=== PATIENT | male | born 1955 | race Caucasian/White ===

== ENCOUNTER → 2016-08-06 | Outpatient (CLI) | payer MEDICARE, MEDICAID ==
--- NOTE | 2016-08-06 12:51 | CR ---
EXAMINATION: Pelvis and right hip HISTORY: Pain COMPARISON: 12/26/2013 TECHNIQUE: AP pelvis and 2 views of the right hip FINDINGS: There is no fracture or acute osseous abnormality. There is mild joint space narrowing wit hin the left hip. There is a prominent superior acetabular rim bilaterally. The SI joints are symmet talib. Bone mineralization is normal. Early osteophyte formation is noted within the right hip and mod erately within the left hip. IMPRESSION: 1. Prominent superior acetabular rim bilaterally, left greater than right. This may suggest pincer-t ype femoral acetabular impingement.
== END ==
LOC: MW.CHORTHO 07:45
PROVIDERS: ATTEND Physician Assistant
DX: M25.551 Pain in right hip (principal); M16.11 Unilateral primary osteoarthritis, right hip
CPT/HCPCS: 73502-26-RT; 73502-RT; 99203

== ENCOUNTER → 2016-08-15 | Outpatient (CLI) | payer MEDICARE, MEDICAID ==
[~2016-08-15] MED LIST: Bupivacaine 0.25% 10 ML SDV INJECT ONE; Iopamidol 612 MG/ML 30 ML SDV IUTERINE STA; Triamcinolone Acetonide 40 MG/ML 1 ML MDV INJECT ONE; Triamcinolone Acetonide 40 MG/ML 1 ML MDV INJECT STA
--- NOTE | 2016-08-15 11:32 | CR ---
EXAMINATION: Fluoro guided right hip injection. HISTORY: Right hip pain FINDINGS: After written informed consent was obtained, under Fluoro guidance, using 1% lidocaine under aseptic conditions a 22-gauge spinal needle was introduced into the right hip joint. After confirmation wit h contrast a total of 80 mg of Kenalog and 3 cc of Marcaine was injected into the joint. The patient noted improvement in pain. IMPRESSION: Successful Fluoro guided right hip joint steroid injection.
== END | disposition home or self-care (01) ==
LOC: MW.DI 08:31
PROVIDERS: ATTEND Physician Assistant
DX: M25.551 Pain in right hip (principal)
CPT/HCPCS: 20610; 77002; J3301; Q9967

== ENCOUNTER 2020-03-30 19:44 | Emergency (ER) | payer MEDICARE, MEDICAID ==
[2020-03-30] MEDS ORDERED: Amoxicillin/Clavulanate K 875-125 MG Tab PO ONE (20:12)
--- NOTE | 2020-03-30 20:24 | EDM.PDOC ---
ED HPI GENERAL MEDICAL PROBLEM - General Chief Complaint: ENT Problem Stated Complaint: RT EAR BLEEDING Time Seen by Provider: 03/30/20 20:01 - History of Present Illness INITIAL COMMENTS - FREE TEXT/NARRATIVE: HISTORY AND PHYSICAL: History of present illness: This is a 64-year-old gentleman with a history significant for chronic otitis media with effusion, conjunctivitis, mild hypercholesterolemia, varicose veins, hearing impairment, gingivitis, chronic sinusitis, advanced left hip osteoarthritis, possible seizure disorder, mild intellectual stability, generalized anxiety disorder, major depressive disorder, cleft palate repair, left myringotomy with PE tubes on the right. Mastoidectomy, sigmoidoscopy, mastoid revision, septoplasty. Presents to the ER today secondary to drainage of his right ear. Caregiver reports no recent fevers, shakes, chills, nausea, vomiting, diarrhea. Reports that he has chronic infections in the utilize Borax acid powder to both ears daily. Review of systems: As per history of present illness and below otherwise all systems reviewed and negative. Past medical history: As per history of present illness and as reviewed below otherwise noncontributory. Surgical history: As per history of present illness and as reviewed below otherwise noncontributory. Social history: No reported history of drug or alcohol abuse. Family history: As per history of present illness and as reviewed below otherwise noncontributory. Physical exam: Constitutional: Patient is oriented to person, place, and time. Appears well- developed and well-nourished. No distress. HEENT: Moist mucous membranes Head: Normocephalic and atraumatic Left tympanic membrane without erythema or exudates. Right tympanic membrane reveals yellow fluid behind the tympanic membrane with a small amount of dr ainage. Eyes: Right eye exhibits no discharge. Left eye exhibits no discharge. No scleral icterus left panic membrane without any drainage or erythema. Neck: Normal range of motion. No tracheal deviation present. Cardiovascular: Normal rate and regular rhythm. Pulmonary: Effort normal, no respiratory distress. Abdominal: No distention Musculoskeletal: Normal range of motion Neurologic: Alert and oriented to person, place and time. Skin: [place], warm and dry. Psychiatric: Normal mood and affect. Behavior is normal. Judgment and thought content normal. Nursing note and vital signs have been reviewed This patient was seen and evaluated during the 2019 SARS-CoV-2 novel coronavirus pandemic period. Community viral transmission is ongoing at time of this encounter and the emergency department is operating under pandemic response procedures. Assessment and plan: 64-year-old gentleman who presents ER today secondary to drainage from his right ear. On evaluation, patient's right ear does have an effusion that is yellow with a small amount of drainage from it. Patient will be started on Augmentin 875 twice daily for 10 days and is instructed to continue his other medications for his ear. Patient is to follow-up with his doctor for reevaluation. Reassessment at the time of disposition demonstrates that the patient is in no acute distress. The patient has remained stable throughout the entire ED visit and is without objective evidence for acute process requiring urgent intervention or hospitalization. The patient is stable for discharge, counseling is provided as documented above, discussed symptomatic treatment and specific conditions for return. I have spoken with the patient/caregiver and discussed todays findings, in addition to providing specific details for the plan of care. Questions are answered and there is agreement with the plan. Definitive disposition and diagnosis as appropriate pending reevaluation and review of above. - Related Data Allergies Allergy/AdvReac Type Severity Reaction Status Date / Time No Known Allergies Allergy Verified 03/30/20 19:57 Home Meds: Home Meds Amoxicillin/Potassium Clav [Augmentin 875-125 Tablet] 1 each PO BID #20 tablet 03/30/20 [Rx] Aspirin 81 mg PO DAILY 03/30/20 [History] FLUoxetine HCl [Fluoxetine HCl] 40 mg PO DAILY 03/30/20 [History] Fenofibrate Nanocrystallized [Tricor] 145 mg PO DAILY 03/30/20 [History] Losartan Potassium 50 mg PO DAILY 03/30/20 [History] Meloxicam 15 mg PO DAILY 03/30/20 [History] Omeprazole 20 mg PO DAILY 03/30/20 [History] Past Medical History HEENT History: Reports: Hard of Hearing, Other (See Below) Other HEENT History: chronic otitis media w/ effusion, conjunctivitis, chronic sinusitis Cardiovascular History: Reports: High Cholesterol, Other (See Below) Other Cardiovascular History: vericose veins Musculoskeletal History: Reports: Other (See Below) Other Musculoskeletal History: advanced left hip osteoarthritis Neurological History: Reports: Other (See Below) Other Neuro History: possible seizure disorder Psychiatric History: Reports: Anxiety, Depression, Learning Disability, Other (See Below) Other Psychiatric History: paraphilia NOS, major deprssive disorder w/psychotic features - Past Surgical History HEENT Surgical History: Reports: Myringotomy w Tube(s), Oral Surgery, Other (See Below) Other HEENT Surgeries/Procedures: cleft palate repair, mastoidectomy & revision, septoplasty GI Surgical History: Reports: Other (See Below) Other GI Surgeries/Procedures: sigmoidoscopy Social & Family History - Family History Family Medical History: No Pertinent Family History - Tobacco Use Tobacco Use Status *Q: Never Tobacco User Second Hand Smoke Exposure: No - Recreational Drug Use Recreational Drug Use: No ED ROS GENERAL - Review of Systems Review Of Systems: See Below ED EXAM, GENERAL - Physical Exam Exam: See Below Course - Vital Signs Last Recorded V/S: Last Vital Signs Temp 97.1 F 03/30/20 19:52 Pulse 73 03/30/20 19:52 Resp 18 03/30/20 19:52 BP 142/77 H 03/30/20 19:52 Pulse Ox 94 L 03/30/20 19:52 - Orders/Labs/Meds Meds: Medications Discontinued Medications Generic Name Dose Route Start Last Admin Trade Name Freq PRN Reason Stop Dose Admin Amoxicillin/Clavulanate Potassium 1 tab 03/30/20 20:12 03/30/20 20:17 Augmentin 875 Mg/125 Mg PO 03/30/20 20:13 1 tab ONETIME ONE Administration Departure - Departure Time of Disposition: 20:23 Disposition: Home, Self-Care 01 Condition: Good Clinical Impression: Otitis media - Discharge Information Instructions: Otitis Media, Adult, [id number] Referrals: Aaron Bernal MD [Primary Care Provider] - Additional Instructions: Your seen and evaluated in the ER today secondary to drainage from your right ear. It appears that you have an infection in your right ear. You will be started on Augmentin 875 mg twice a day for 10 days. Please make an appointment to follow-up with your ear nose throat doctor this week for reevaluation. The following information is given to patients seen in the emergency department who are being discharged to home. This information is to outline your options for follow-up care. We provide all patients seen in our emergency department with a follow-up referral. The need for follow-up, as well as the timing and circumstances, are variable depending upon the specifics of your emergency department visit. If you don't have a primary care physician on staff, we will provide you with a referral. We always advise you to contact your personal physician following an emergency department visit to inform them of the circumstance of the visit and for follow-up with them and/or the need for any referrals to a consulting specialist. The emergency department will also refer you to a specialist when appropriate. This referral assures that you have the opportunity for follow-up care with a specialist. All of these measure are taken in an effort to provide you with optimal care, which includes your follow-up. Under all circumstances we always encourage you to contact your private physician who remains a resource for coordinating your care. When calling for follow-up care, please make the office aware that this follow-up is from your recent emergency room visit. If for any reason you are refused follow-up, please contact the [facility] Emergency Department at and asked to speak to the emergency department charge nurse. [facility] [address] [place] [id number] [facility] [address] [place] [id number] Sepsis Event Note (ED) - Evaluation Sepsis Screening Result: No Definite Risk - Focused Exam Vital Signs: Vital Signs Temp Pulse Resp BP Pulse Ox 03/30/20 19:52 97.1 F 73 18 142/77 H 94 L
[2020-03-30 20:37] VITALS: BP 128/85; PULSE 70
== END 2020-03-30 20:35 | disposition home or self-care (01) ==
LOC: MW.ED 19:44
DX: H66.91 Otitis media, unspecified, right ear (principal); F41.9 Anxiety disorder, unspecified; F32.9 Major depressive disorder, single episode, unspecified; Z79.82 Long term (current) use of aspirin; Z79.899 Other long term (current) drug therapy
CPT/HCPCS: 99282; A9270

== ENCOUNTER 2020-04-18 17:27 | Emergency (ER) | payer MEDICARE, MEDICAID ==
--- NOTE | 2020-04-18 17:57 | EDM.PDOC ---
ED HPI GENERAL MEDICAL PROBLEM - General Chief Complaint: ENT Problem Stated Complaint: EAR INFECTION Time Seen by Provider: 04/18/20 17:39 Source of Information: Reports: Patient History Limitations: Reports: No Limitations - History of Present Illness INITIAL COMMENTS - FREE TEXT/NARRATIVE: HISTORY AND PHYSICAL: History of present illness: Patient is a 64-year-old male who presents to the ER with his caregiver with complaints of bleeding from his right ear. His caregiver states he was treated for otitis media on 03/30/20 with an amoxicillin antibiotic for 10 days which wo rked well. She states that she noticed this morning the patient had a blood pooling in his right ear. Contacted the nurse who works for the care agency who instructed her to bring him to the ER. Patient denies any trauma to the ear or his head. Denies any recent falls and denies sticking any type of object into his ear canal. Patient denies any fever, chills, headache, change in vision, syncope or near syncope. Denies any chest pain, back pain, shortness of breath or cough. Denies any abdominal pain, nausea, vomiting, diarrhea, constipation or dysuria. Has not noted any blood in urine or stool. Patient has been eating and drinking appropriately. Review of systems: As per history of present illness and below otherwise all systems reviewed and negative. Past medical history: As per history of present illness and as reviewed below otherwise noncontributory. Surgical history: As per history of present illness and as reviewed below otherwise noncontributory. Social history: See social history for further information Family history: As per history of present illness and as reviewed below otherwise noncontributory. Physical exam: General: Well developed and well nourished. Alert and orientated x 3. Nontoxic in appearance and in no acute distress. Vital signs are stable and have been reviewed by me. Nursing notes were reviewed. HEENT: Atraumatic, normocephalic, pupils equal and reactive bilaterally, negative for conjunctival pallor or scleral icterus, mucous membranes moist, left TM has a chronic effusion, right TM does have erythema in the canal and blood noted, small perforation is noted at the 9 o'clock position surrounding erythema. Throat clear, neck supple, nontender, trachea midline. No drooling or trismus noted. No meningeal signs. No hot potato voice noted. Lungs: Clear to auscultation bilaterally. No wheezes, rales, or rhonchi. Chest nontender. Normal work of breathing, no accessory muscles used. Heart: S1S2, regular rate and rhythm without overt murmur, gallops, or rubs. No JVD. No peripheral edema Abdomen: Soft, nondistended, nontender. Skin: Intact, warm, dry. No lesions or rashes noted. Hematologic: No petechiae or purpra. Mucosa appropriate color and normal nail bed color and refill. Extremities: Atraumatic, moves all extremities per self without difficulty or deficits, negative for cords or calf pain. Neurovascular unremarkable. Neuro: Awake, alert, oriented. Cranial nerves II through XII unremarkable. Cerebellum unremarkable. Motor and sensory unremarkable throughout. Exam nonfocal. Psychiatric: Mood and affect are appropriate. Normal thought process. Answering questions appropriately. Notes: *This patient was seen and evaluated during the 2019 SARS-CoV-2 novel coronavirus pandemic period. Community viral transmission is ongoing at time of this encounter and the emergency department is operating under pandemic response procedures. The caregiver states that they do a boric acid aerosol "puffer" directly into both ears to help dry out any drainage, this has been ordered by his primary care provider. I did request that they abstain from this over the next week until he can be reevaluated. She does have Ciprodex otic ear drops for infection that they started today, will have him continue using this and I will prescribe Augmentin. I have talked with the patient about today's findings, in addition to providing specific details for plan of care. Reassessment at the time of disposition demonstrates that the patient is in no acute distress. Due to the patient's chronic ear infections I have recommended that they follow-up with an director of distance learning. The patient is stable for discharge, counseling was provided and we discussed in great detail signs and symptoms that would prompt them to return to the Emergency Department. Medication, follow up and supportive care measures were reviewed and discussed. Voices understanding and is agreeable to plan of care. Denies any further questions or concerns at this time. Diagnostics: None Therapeutics: None Prescription: Augmentin Impression: Otitis media with perforation Plan: 1. Stop the ear aerosol in the right ear over the next 5 days. You can apply the ear drops to the right ear over the next 5-7 days. Take the oral antibiotic as directed. AVOID placing anything in the ear canal that could cause further injury. 2. You can alternate Tylenol and ibuprofen as needed for pain and fever management. 3. We encourage you to follow up with ENT (ear, nose and throat specialist) in the next week for re-evaluation and further care/management. 4. If your symptoms should worsen, new symptoms develop or any of the signs and symptoms we discussed should arise please return to the emergency room or call 911 (if needed). Definitive disposition and diagnosis as appropriate pending reevaluation and review of above. - Related Data Allergies Allergy/AdvReac Type Severity Reaction Status Date / Time No Known Allergies Allergy Verified 04/18/20 17:51 Home Meds: Home Meds Aspirin 81 mg PO DAILY 03/30/20 [History] FLUoxetine HCl [Fluoxetine HCl] 40 mg PO DAILY 03/30/20 [History] Fenofibrate Nanocrystallized [Tricor] 145 mg PO DAILY 03/30/20 [History] Losartan Potassium 50 mg PO DAILY 03/30/20 [History] Meloxicam 15 mg PO DAILY 03/30/20 [History] Omeprazole 20 mg PO DAILY 03/30/20 [History] Amoxicillin/Clavulanate K [Augmentin 875-125 MG] 1 tab PO BID 10 Days #19 tablet 04/18/20 [Rx] Past Medical History HEENT History: Reports: Hard of Hearing, Other (See Below) Other HEENT History: chronic otitis media w/ effusion, conjunctivitis, chronic sinusitis Cardiovascular History: Reports: High Cholesterol, Other (See Below) Other Cardiovascular History: vericose veins Musculoskeletal History: Reports: Other (See Below) Other Musculoskeletal History: advanced left hip osteoarthritis Neurological History: Reports: Other (See Below) Other Neuro History: possible seizure disorder Psychiatric History: Reports: Anxiety, Depression, Learning Disability, Other (See Below) Other Psychiatric History: paraphilia NOS, major deprssive disorder w/psychotic features - Past Surgical History HEENT Surgical History: Reports: Myringotomy w Tube(s), Oral Surgery, Other (See Below) Other HEENT Surgeries/Procedures: cleft palate repair, mastoidectomy & revision, septoplasty GI Surgical History: Reports: Other (See Below) Other GI Surgeries/Procedures: sigmoidoscopy Social & Family History - Family History Family Medical History: No Pertinent Family History ED ROS ENT - Review of Systems Review Of Systems: Comprehensive ROS is negative, except as noted in HPI. ED EXAM, ENT - Physical Exam Exam: See Below (See dictation) Course - Vital Signs Last Recorded V/S: Last Vital Signs Temp 97 F 04/18/20 17:51 Pulse 67 04/18/20 17:51 Resp 18 04/18/20 17:51 BP 133/68 04/18/20 17:51 Pulse Ox 94 L 04/18/20 17:51 - Orders/Labs/Meds Meds: Medications Discontinued Medications Generic Name Dose Route Start Last Admin Trade Name Freq PRN Reason Stop Dose Admin Amoxicillin/Clavulanate Potassium 1 tab 04/18/20 18:08 Augmentin 875 Mg/125 Mg PO 04/18/20 18:09 ONETIME ONE Departure - Departure Time of Disposition: 18:07 Disposition: Home, Self-Care 01 Clinical Impression: Otitis media Qualifiers: Otitis media type: suppurative Chronicity: acute Laterality: right Recurrence: recurrent Spontaneous tympanic membrane rupture: with spontaneous rupture Qualified Code(s): H66.014 - Acute suppurative otitis media with spontaneous rupture of ear drum, recurrent, right ear - Discharge Information Prescriptions: Amoxicillin/Clavulanate K [Augmentin 875-125 MG] 1 tab PO BID 10 Days #19 tablet Referrals: Aaron Bernal MD [Primary Care Provider] - Forms: ED Department Discharge Additional Instructions: The following information is given to patients seen in the emergency department who are being discharged to home. This information is to outline your options for follow-up care. We provide all patients seen in our emergency department w ith a follow-up referral. The need for follow-up, as well as the timing and circumstances, are variable depending upon the specifics of your emergency department visit. If you don't have a primary care physician on staff, we will provide you with a referral. We always advise you to contact your personal physician following an emergency department visit to inform them of the circumstance of the visit and for follow-up with them and/or the need for any referrals to a consulting specialist. The emergency department will also refer you to a specialist when appropriate. This referral assures that you have the opportunity for follow-up care with a specialist. All of these measure are taken in an effort to provide you with optimal care, which includes your follow-up. Under all circumstances we always encourage you to contact your private physician who remains a resource for coordinating your care. When calling for follow-up care, please make the office aware that this follow-up is from your recent emergency room visit. If for any reason you are refused follow-up, please contact the [facility] Emergency Department at and asked to speak to the emergency department charge nurse. [facility] [address] [place] [address] [facility] [address] [place] [address] Thank you for choosing the [facility] emergency department in [facility] for your medical needs today. It was a pleasure caring for you. Today you were seen in the emergency department for ear drainage/infection. 1. Stop the ear aerosol in the right ear over the next 5 days. You can apply the ear drops to the right ear over the next 5-7 days. Take the oral antibiotic as directed. AVOID placing anything in the ear canal that could cause further injury. 2. You can alternate Tylenol and ibuprofen as needed for pain and fever management. 3. We encourage you to follow up with ENT (ear, nose and throat specialist) in the next week for re-evaluation and further care/management. 4. If your symptoms should worsen, new symptoms develop or any of the signs and symptoms we discussed should arise please return to the emergency room or call 911 (if needed). Sepsis Event Note (ED) - Evaluation Sepsis Screening Result: No Definite Risk - Focused Exam Vital Signs: Vital Signs Temp Pulse Resp BP Pulse Ox 04/18/20 17:51 97 F 67 18 133/68 94 L
[2020-04-18] MEDS ORDERED: Amoxicillin/Clavulanate K 875-125 MG Tab PO ONE (18:08)
[2020-04-18 18:28] VITALS: BP 126/81; PULSE 71
== END 2020-04-18 18:30 | disposition home or self-care (01) ==
LOC: MW.ED 17:27
DX: H66.014 Acute suppurative otitis media with spontaneous rupture of ear drum, recurrent, right ear (principal); Z79.82 Long term (current) use of aspirin
CPT/HCPCS: 99282; A9270; 99283

== ENCOUNTER 2020-10-10 06:40 | Day surgery (SDC) | payer MEDICARE, MEDICAID ==
[~2020-10-10 06:40] MED LIST changes: -Bupivacaine 0.25% 10 ML SDV INJECT ONE; -Iopamidol 612 MG/ML 30 ML SDV IUTERINE STA; +Lactated Ringers 1,000 ML IV SCH; -Triamcinolone Acetonide 40 MG/ML 1 ML MDV INJECT ONE; -Triamcinolone Acetonide 40 MG/ML 1 ML MDV INJECT STA
[2020-10-10] MEDS ORDERED: propofoL 50 ML ONE (07:03)
[2020-10-10] MEDS ORDERED: Lidocaine 2% 5 ML SDV ONE (07:11)
[2020-10-10] MEDS ORDERED: fentaNYL 100 MCG/2 ML SDV ONE (07:15)
--- NOTE | 2020-10-10 07:34 | PCM.PREANE ---
Preanesthetic Assessment - Anesthesia/Transfusion/Family Hx Anesthesia History: Prior Anesthesia Without Reaction Transfusion History: No Prior Transfusion(s) - Review of Systems General: No Symptoms Pulmonary: No Symptoms Cardiovascular: No Symptoms Gastrointestinal: No Symptoms Neurological: Pre-Existing Deficit Other: Reports: None - Physical Assessment NPO Status Date: 10/10/20 NPO Status Time: 00:00 Vital Signs: Last Vital Signs Temp 97.7 F 10/10/20 07:16 Pulse 61 10/10/20 07:16 Resp 16 10/10/20 07:16 BP 166/96 H 10/10/20 07:16 Pulse Ox 95 10/10/20 07:16 Height: 5 ft 9 in Weight: 235 lb ASA Class: 3 Mental Status: Alert & Oriented x3 Airway Class: Mallampati = 3 Dentition: Reports: Bridge, Implants, Missing Tooth/Teeth ROM/Head Extension: Full Lungs: Clear to Auscultation, Normal Respiratory Effort Cardiovascular: Regular Rate, Regular Rhythm - Allergies Allergies/Adverse Reactions: Allergies Allergy/AdvReac Type Severity Reaction Status Date / Time No Known Allergies Allergy Verified 10/10/20 07:15 - Blood Blood Available: No - Acknowledgements Anesthesia Type Planned: General Anesthesia Pt an Appropriate Candidate for the Planned Anesthesia: Yes Alternatives and Risks of Anesthesia Discussed w Pt/Guardian: Yes Pt/Guardian Understands and Agrees with Anesthesia Plan: Yes PreAnesthesia Questionnaire HEENT History: Reports: Hard of Hearing, Other (See Below) Other HEENT History: chronic otitis media w/ effusion, conjunctivitis, chronic sinusitis Cardiovascular History: Reports: High Cholesterol, Other (See Below) Other Cardiovascular History: vericose veins Respiratory History: Reports: None Gastrointestinal History: Reports: Colon Polyp, GERD Genitourinary History: Reports: None Musculoskeletal History: Reports: Other (See Below) Other Musculoskeletal History: advanced left hip osteoarthritis Neurological History: Reports: Other (See Below) Other Neuro History: possible seizure disorder Psychiatric History: Reports: Anxiety, Depression, Learning Disability, Other (See Below) Other Psychiatric History: paraphilia NOS, major deprssive disorder w/psychotic features Endocrine/Metabolic History: Reports: Obesity/BMI 30+ Hematologic History: Reports: None Immunologic History: Reports: None Oncologic (Cancer) History: Reports: None Dermatologic History: Reports: None - Infectious Disease History Infectious Disease History: Reports: None - Past Surgical History Head Surgeries/Procedures: Reports: None HEENT Surgical History: Reports: Myringotomy w Tube(s), Oral Surgery, Other (See Below) Other HEENT Surgeries/Procedures: cleft palate repair, mastoidectomy & revision, septoplasty Cardiovascular Surgical History: Reports: None Respiratory Surgical History: Reports: None GI Surgical History: Reports: Other (See Below) Other GI Surgeries/Procedures: sigmoidoscopy Male Surgical History: Reports: None Endocrine Surgical History: Reports: None Neurological Surgical History: Reports: None Musculoskeletal Surgical History: Reports: None Oncologic Surgical History: Reports: None Dermatological Surgical History: Reports: None - SUBSTANCE USE Tobacco Use Status *Q: Never Tobacco User - HOME MEDS Home Medications: Home Meds Aspirin 81 mg PO DAILY 03/30/20 [History] FLUoxetine HCl [Fluoxetine HCl] 40 mg PO DAILY 03/30/20 [History] Fenofibrate Nanocrystallized [Tricor] 145 mg PO DAILY 03/30/20 [History] Losartan Potassium 50 mg PO DAILY 03/30/20 [History] Omeprazole 20 mg PO DAILY 03/30/20 [History] Boric Acid 1 dose EARBOTH ASDIRECTED PRN 10/04/20 [History] Ciprofloxacin HCl/Dexameth [Ciprodex Otic Suspension] 1 drop EARBOTH DAILY PRN 10/04/20 [History] Naftifine HCl [Naftin] 1 applic TOP ASDIRECTED PRN 10/04/20 [History] Triamcinolone Acetonide [Triamcinolone Acetonide 0.025%] 1 applic TOP ASDIRECTED PRN 10/04/20 [History] traMADol HCl [Tramadol HCl] 50 mg PO ASDIRECTED PRN 10/04/20 [History] - CURRENT (IN HOUSE) MEDS Current Meds: Current Medications Lactated Ringer's (Ringers, Lactated) 1,000 mls @ 125 mls/hr IV ASDIRECTED VU Last Admin: 10/10/20 07:12 Dose: 125 mls/hr Documented by: Discontinued Medications Fentanyl (Fentanyl 100 Mcg/2 Ml Sdv) Confirm Administered Dose 100 mcg .ROUTE .STK-MED ONE Stop: 10/10/20 07:16 Propofol (Diprivan 50 Ml) Confirm Administered Dose 50 mls @ as directed .ROUTE .STK-MED ONE Stop: 10/10/20 07:04 Lidocaine (Lidocaine 2% 5 Ml Sdv) Confirm Administered Dose 5 ml .[facility]TE [facility] Stop: 10/10/20 07:12
--- NOTE | 2020-10-10 08:24 | PCM.OPNOTE ---
- General Post-Op/Procedure Note Date of Surgery/Procedure: 10/10/20 Operative Procedure(s): colonoscopy Findings: scant right sided diverticulosis dictation number [id number] Pre Op Diagnosis: history of colon polyps Post-Op Diagnosis: scant right sided diverticulosis Primary Surgeon: Gomez Patten Pathology: none Complications: None Condition: Good
--- NOTE | 2020-10-10 08:42 | PCM.POSTAN ---
POST ANESTHESIA ASSESSMENT - MENTAL STATUS Mental Status: Alert, Oriented - VITAL SIGNS Vital Signs: Last Vital Signs Temp 97.7 F 10/10/20 07:16 Pulse 53 L 10/10/20 08:32 Resp 11 L 10/10/20 08:32 BP 100/70 10/10/20 08:32 Pulse Ox 92 L 10/10/20 08:32 - RESPIRATORY Respiratory Status: Respiratory Rate WNL, Airway Patent, O2 Saturation Stable - CARDIOVASCULAR CV Status: Pulse Rate WNL, Blood Pressure Stable - GASTROINTESTINAL GI Status: No Symptoms - POST OP HYDRATION Hydration Status: Adequate & Stable
--- NOTE | 2020-10-10 08:42 | PCM48HPAN ---
Post Anesthesia Note - EVALUATION WITHIN 48HRS OF ANESTHETIC Vital Signs in Normal Range: Yes Patient Participated in Evaluation: Yes Respiratory Function Stable: Yes Airway Patent: Yes Cardiovascular Function Stable: Yes Hydration Status Stable: Yes Pain Control Satisfactory: Yes Nausea and Vomiting Control Satisfactory: Yes Mental Status Recovered: Yes Vital Signs: Last Vital Signs Temp 97.7 F 10/10/20 07:16 Pulse 53 L 10/10/20 08:32 Resp 11 L 10/10/20 08:32 BP 100/70 10/10/20 08:32 Pulse Ox 92 L 10/10/20 08:32
[2020-10-10 09:15] VITALS: BP 119/83; PULSE 58
--- NOTE | 2020-10-10 15:58 | OR ---
SURGEON: LEONARDO LUJAN MD DATE OF PROCEDURE: 10/10/2020 PREOPERATIVE DIAGNOSIS: History of colon polyps. POSTOPERATIVE DIAGNOSIS: Some scant right-sided diverticulosis. PROCEDURE PERFORMED: Colonoscopy. PRIMARY SURGEON: Leonardo Lujan MD ANESTHESIA: With anesthesiologist. EXTENT OF THE COLONOSCOPY: To the cecum. BOWEL PREP: Good. LIMITATIONS: None. REASON FOR PROCEDURE: The patient is a pleasant 64-year-old gentleman whose last colonoscopy was five years ago in 2016. He had some polyps removed and was told to come back in five years. He denies any blood in the stool. He denies any changes in bowel habits. PROCEDURE IN DETAIL: Physical exam was performed. The major risks and benefits associated with the procedure were explained to the patient in detail. The patient verbalized understanding and was in agreement with the same. The patient was then connected to the appropriate monitoring devices, and IV was started. EKG, pulse oximetry, blood pressure, and capnography were monitored throughout the entire procedure. Oxygen and sedation were provided by the anesthesiologist. The patient was placed in left lateral decubitus position. Sedation was began. After adequate sedation was achieved, digital rectal exam was performed. No rectal masses or polyps were felt. Now, a well-lubricated Olympus colonoscope was inserted into the rectum and advanced under direct visualization to the level of the cecum. The cecum was identified by both visual and anatomic landmarks. Photographs were taken of the cecal cap. The patient did have a somewhat active terminal ileum. The terminal ileum was also photographed. The scope was then slowly withdrawn in a circular fashion looking at the color, texture, anatomy, and integrity of mucosa from the cecum to the anal canal. The patient did have some mainly liquid stool which was suctioned and irrigated out for a good look at the mucosa. The patient had some very scant diverticulosis in the right side of the colon. Otherwise, no other polyps or lesions were seen. The scope was retroflexed in the rectum. Scope was completely removed and the procedure was terminated. ENDOSCOPIC DIAGNOSIS: Some scant right-sided diverticulosis. RECOMMENDATIONS: Followup colonoscopy should be in 10 years. He may need one sooner if he develops signs and symptoms such as change in bowel habits or blood in the stool. DENIZ / ADELA /[id number]
== END 2020-10-10 09:00 | disposition home or self-care (01) ==
LOC: MW.SDS 06:40
PROVIDERS: ATTEND Surgery
DX: Z12.11 Encounter for screening for malignant neoplasm of colon (principal); K57.30 Diverticulosis of large intestine without perforation or abscess without bleeding; Z86.010 Personal history of colon polyps; M16.12 Unilateral primary osteoarthritis, left hip; M16.11 Unilateral primary osteoarthritis, right hip; E78.00 Pure hypercholesterolemia, unspecified; E66.9 Obesity, unspecified; Z68.31 Body mass index [BMI] 31.0-31.9, adult
CPT/HCPCS: 00812; J2704; J3010; J7120

== ENCOUNTER 2020-10-31 06:46 | Day surgery (SDC) | payer MEDICARE, MEDICAID ==
[~2020-10-31 06:46] MED LIST changes: +Famotidine 20 MG/2 ML SDV IVPUSH SCH; +Ropivacaine 49.25 ML, Ketorolac 30 MG, EPINEPHrine 0.5 MG, cloNIDine 80 MCG in Sodium C... INJECT SCH; +Scopolamine 1.5 MG Transdermal Patch TRDERM SCH
[2020-10-31] MEDS ORDERED: propofoL 50 ML ONE (06:58)
[2020-10-31] MEDS ORDERED: Morphine PF 10 MG/10 ML SDV ONE (06:58)
[2020-10-31] MEDS ORDERED: Lidocaine 1% 20 ML MDV ONE (06:59)
[2020-10-31] MEDS ORDERED: Bupivacaine 25%/EPINEPHrine/PF 30 ML ONE (06:59)
[2020-10-31] MEDS ORDERED: EPINEPHrine 1 MG/ML SDV ONE (07:03)
[2020-10-31] MEDS ORDERED: Midazolam 1 MG/ML 2 ML SDV ONE (07:04)
[2020-10-31] MEDS ORDERED: Dexamethasone 4 MG/ML 5 ML MDV ONE (07:04)
[2020-10-31] MEDS ORDERED: fentaNYL 100 MCG/2 ML SDV ONE (07:04)
[2020-10-31] MEDS ORDERED: Metoclopramide 10 MG/2 ML SDV ONE (07:18)
[2020-10-31] MEDS ORDERED: Famotidine 20 MG/2 ML SDV ONE (07:22)
[2020-10-31] MEDS ORDERED: Ondansetron 4 MG/2 ML SDV IVPUSH PRN ×2 (07:41→10:45)
[2020-10-31] MEDS ORDERED: fentaNYL 100 MCG/2 ML SDV IVPUSH PRN (07:41)
[2020-10-31] MEDS ORDERED: Morphine 2 MG/ML SYRINGE IVPUSH PRN ×2 (07:41→10:45)
[2020-10-31] MEDS ORDERED: Albuterol 0.083% 2.5 MG/3 ML Neb Soln NEB PRN (07:41)
[2020-10-31] MEDS ORDERED: Metoclopramide 10 MG/2 ML SDV IVPUSH PRN (07:41)
[2020-10-31] MEDS ORDERED: HYDROmorphone 1 MG/ML Syringe IVPUSH PRN (07:41)
[2020-10-31] MEDS ORDERED: Naloxone 0.4 MG/ML Syringe IVPUSH PRN (07:41)
--- NOTE | 2020-10-31 07:41 | PCM.PREANE ---
Preanesthetic Assessment - Anesthesia/Transfusion/Family Hx Anesthesia History: Prior Anesthesia Without Reaction Transfusion History: No Prior Transfusion(s) - Review of Systems General: No Symptoms Pulmonary: No Symptoms Cardiovascular: No Symptoms Gastrointestinal: No Symptoms Neurological: No Symptoms Other: Reports: None - Physical Assessment NPO Status Date: 10/31/20 NPO Status Time: 00:00 Vital Signs: Last Vital Signs Temp 97.9 F 10/31/20 06:57 Pulse 60 10/31/20 06:57 Resp 15 10/31/20 06:57 BP 139/97 H 10/31/20 06:57 Pulse Ox 92 L 10/31/20 06:57 Height: 5 ft 9 in Weight: 235 lb ASA Class: 3 Mental Status: Alert & Oriented x3 Airway Class: Mallampati = 3 Dentition: Reports: Normal Dentition Thyro-Mental Finger Breadths: 3 Mouth Opening Finger Breadths: 3 ROM/Head Extension: Full Lungs: Clear to Auscultation, Normal Respiratory Effort Cardiovascular: Regular Rate, Regular Rhythm - Allergies Allergies/Adverse Reactions: Allergies Allergy/AdvReac Type Severity Reaction Status Date / Time No Known Allergies Allergy Verified 10/25/20 10:55 - Blood Blood Available: Yes Product(s) Available: PRBC - Anesthesia Plan Pre-Op Medication Ordered: Other (Scopolamine) - Acknowledgements Anesthesia Type Planned: Spinal Pt an Appropriate Candidate for the Planned Anesthesia: Yes Alternatives and Risks of Anesthesia Discussed w Pt/Guardian: Yes Pt/Guardian Understands and Agrees with Anesthesia Plan: Yes PreAnesthesia Questionnaire HEENT History: Reports: Hard of Hearing, Other (See Below) Other HEENT History: chronic otitis media w/ effusion, conjunctivitis, chronic sinusitis Cardiovascular History: Reports: High Cholesterol, Other (See Below) Other Cardiovascular History: vericose veins Respiratory History: Reports: None Gastrointestinal History: Reports: Colon Polyp, GERD Genitourinary History: Reports: None Musculoskeletal History: Reports: Other (See Below) Other Musculoskeletal History: advanced left hip osteoarthritis Neurological History: Reports: Other (See Below) Other Neuro History: possible seizure disorder Psychiatric History: Reports: Anxiety, Depression, Learning Disability, Other (See Below) Other Psychiatric History: paraphilia NOS, major deprssive disorder w/psychotic features Endocrine/Metabolic History: Reports: Obesity/BMI 30+ Hematologic History: Reports: None Immunologic History: Reports: None Oncologic (Cancer) History: Reports: None Dermatologic History: Reports: None - Infectious Disease History Infectious Disease History: Reports: None - Past Surgical History Head Surgeries/Procedures: Reports: None HEENT Surgical History: Reports: Myringotomy w Tube(s), Oral Surgery, Other (See Below) Other HEENT Surgeries/Procedures: cleft palate repair, mastoidectomy & revision, septoplasty Cardiovascular Surgical History: Reports: None Respiratory Surgical History: Reports: None GI Surgical History: Reports: Other (See Below) Other GI Surgeries/Procedures: sigmoidoscopy Male Surgical History: Reports: None Endocrine Surgical History: Reports: None Neurological Surgical History: Reports: None Musculoskeletal Surgical History: Reports: None Oncologic Surgical History: Reports: None Dermatological Surgical History: Reports: None - SUBSTANCE USE Tobacco Use Status *Q: Never Tobacco User Recreational Drug Use History: No - HOME MEDS Home Medications: Home Meds Aspirin 81 mg PO DAILY 03/30/20 [History] FLUoxetine HCl [Fluoxetine HCl] 40 mg PO DAILY 03/30/20 [History] Fenofibrate Nanocrystallized [Tricor] 145 mg PO DAILY 03/30/20 [History] Losartan Potassium 50 mg PO QAM 03/30/20 [History] Omeprazole 20 mg PO DAILY 03/30/20 [History] Boric Acid 1 dose EARBOTH ASDIRECTED PRN 10/04/20 [History] traMADol HCl [Tramadol HCl] 50 mg PO ASDIRECTED PRN 10/04/20 [History] Meloxicam 15 mg PO DAILY 10/25/20 [History] atorvaSTATin [Lipitor] 10 mg PO DAILY 10/25/20 [History] - CURRENT (IN HOUSE) MEDS Current Meds: Current Medications Famotidine (Famotidine 20 Mg/2 Ml Sdv) 40 mg IVPUSH ONARRIVE [facility] Last Admin: 10/31/20 07:23 Dose: 40 mg Documented by: Tranexamic Acid 1,000 mg/ (Sodium Chloride) 110 mls @ 600 mls/hr IV ASDIRECTED ONE Stop: 10/31/20 08:10 Ropivacaine 49.25 ml/Ketorolac Tromethamine 30 mg/Epinephrine HCl 0.5 mg/Clonidine HCl 80 mcg/ Sodium Chloride 75 mls @ 50 mls/sec INJECT ASDIRECTED [facility] Cefazolin Sodium/Dextrose 2 gm (/ Premix) 50 mls @ 100 mls/hr IV ONCALL [facility] Lactated Ringer's (Ringers, Lactated) 1,000 mls @ 100 mls/hr IV ASDIRECTED [facility] Last Admin: 10/31/20 07:24 Dose: 100 mls/hr Documented by: Scopolamine (Scopolamine 1.5 Mg Transdermal Patch) 1.5 mg TRDERM ONARRIVE [facility] Last Admin: 10/31/20 07:20 Dose: 1.5 mg Documented by: Discontinued Medications Dexamethasone (Dexamethasone 4 Mg/Ml 5 Ml Mdv) Confirm Administered Dose 20 mg .ROUTE .STK-MED ONE Stop: 10/31/20 07:05 Epinephrine HCl (Epinephrine 1 Mg/Ml Sdv) Confirm Administered Dose 1 mg .ROUTE .STK-MED ONE Stop: 10/31/20 07:04 Famotidine (Famotidine 20 Mg/2 Ml Sdv) Confirm Administered Dose 40 mg .ROUTE .STK-MED ONE Stop: 10/31/20 07:23 Fentanyl (Fentanyl 100 Mcg/2 Ml Sdv) Confirm Administered Dose 100 mcg .ROUTE .STK-MED ONE Stop: 10/31/20 07:05 Propofol (Diprivan 50 Ml) Confirm Administered Dose 50 mls @ as directed .ROUTE .STK-MED ONE Stop: 10/31/20 06:59 Bupivacaine HCl/Epinephrine Bitart (Sensorc Mpf 0.25%-Epi [id number]) Confirm Administered Dose 30 mls @ as directed .ROUTE .STK-MED ONE Stop: 10/31/20 07:00 Acetaminophen (Ofirmev 1000 Mg/100 Ml) Confirm Administered Dose 100 mls @ as directed .ROUTE .STK-MED ONE Stop: 10/31/20 07:00 Lidocaine HCl (Lidocaine 1% 20 Ml Mdv) Confirm Administered Dose 20 ml .ROUTE .STK-MED ONE Stop: 10/31/20 07:00 Lidocaine HCl (Lidocaine 1% 5 Ml Sdv) Confirm Administered Dose 5 ml .ROUTE .STK-MED ONE Stop: 10/31/20 07:04 Metoclopramide HCl (Metoclopramide 10 Mg/2 Ml Sdv) Confirm Administered Dose 10 mg .ROUTE .STK-MED ONE Stop: 10/31/20 07:19 Midazolam HCl (Midazolam 1 Mg/Ml 2 Ml Sdv) Confirm Administered Dose 2 mg .ROUTE .STK-MED ONE Stop: 10/31/20 07:05 Morphine Sulfate (Morphine Pf 10 Mg/10 Ml Sdv) Confirm Administered Dose 10 mg .ROUTE .STK-MED ONE Stop: 10/31/20 06:59
--- NOTE | 2020-10-31 07:57 | PCM.SN.2 ---
- Free Text/Narrative Note: Anesthesia Start: 724 Anesthesia Stop: 734 Placement of left MAHAD block using US guidance for post op pain control. Block time out performed and 30cc 0.25% Bupiv with epi injected under direct visualization. No complications MD Arabella Carrero, [employer]
[2020-10-31] MEDS ORDERED: Tranexamic Acid 1,000 MG in Sodium Chloride 0.9% 100 ML IV ONE (08:00)
[2020-10-31] MEDS ORDERED: Ropivacaine 49.25 ML, Ketorolac 30 MG, EPINEPHrine 0.5 MG, cloNIDine 80 MCG in Sodium C... INJECT SCH (08:00)
[2020-10-31] MEDS ORDERED: ceFAZolin 2 GM in Premix Bag 1 BAG IV SCH (08:00)
[2020-10-31] MEDS ORDERED: Phenylephrine 1% 10 MG/ML SDV ONE (08:46)
[2020-10-31] MEDS ORDERED: Glycopyrrolate 0.2 MG/ML SDV ONE (08:53)
[2020-10-31] MEDS ORDERED: Ketorolac 30 MG/ML SDV ONE (10:06)
[2020-10-31] MEDS ORDERED: Docusate Sodium 100 MG Cap PO PRN (10:45)
[2020-10-31] MEDS ORDERED: Aluminum Hydroxide/Magnesium Hydroxide/Simethicone Susp 30 ML Cup PO PRN (10:45)
[2020-10-31] MEDS ORDERED: oxyCODONE 5 MG Tab PO PRN (10:45)
[2020-10-31] MEDS ORDERED: diphenhydrAMINE 25 MG Cap PO PRN (10:45)
[2020-10-31] MEDS ORDERED: Sodium Chloride 0.9% 2.5 ML Syringe FLUSH PRN (10:45)
[2020-10-31] MEDS ORDERED: Sodium Chloride 0.9% 10 ML Syringe FLUSH PRN (10:45)
[2020-10-31] MEDS ORDERED: traMADol 50 MG Tab PO PRN (10:45)
[2020-10-31] MEDS ORDERED: Bisacodyl 10 MG Supp RECTAL PRN (10:45)
--- NOTE | 2020-10-31 10:48 | PCM.OPNOTE ---
- General Post-Op/Procedure Note Date of Surgery/Procedure: 10/31/20 Operative Procedure(s): Left total hip replacement using [employer] hip system Findings: Left hip severe end-stage grade 4 hip osteoarthritis with large marginal osteophytes and flattening of the femoral head Pre Op Diagnosis: Left hip grade 4 osteoarthritis Post-Op Diagnosis: Left hip grade 4 osteoarthritis Anesthesia Technique: Spinal Primary Surgeon: Pepito Greco [employer] Attendant: Eugenie Santos [employer]ist [employer] Attendant Was Necessary: Patient positioning and retraction during surgery Pathology: Femoral head, marginal osteophytes, acetabular reamings. EBL in mLs: 700 Complications: None Free Text/Narrative:: Patient is a 64-year-old male with severe grade 4 left hip osteoarthritis. Patient has failed optimal medical management. We discussed the risks and benefits of surgery with the patient and his delegate. All questions were answered and the patient wished to proceed with surgery. Patient was medically clear for surgery. Patient was taken to the operating room. After adequate spinal anesthesia he was placed in a right lateral decubitus position with the left hip up. The left buttock hip and thigh were prepped and draped in the usual sterile manner. A oblique incision was made centered over the greater trochanter. Skin was incised with a scalpel. Subcutaneous tissue was incised electrocautery. The iliotibial band was split between fibers and extended into the gluteus mago. The anterior third of the abductors were taken down and retracted anteriorly. A T capsulotomy was performed and retraction sutures placed in the anterior and posterior limbs. The femoral head was dislocated and the femoral neck cut made with an oscillating saw. Marginal osteophytes were removed exposing the acetabulum. The acetabulum was sequentially reamed up to 56 mm with good bleeding bone. A 3 hole 56 mm diameter R3 acetabular shell was impacted into place. 2 screws were placed into the acetabulum and then hole covers were inserted. Marginal osteophytes were removed with an osteotome. The 20 degree cross-link polyethylene liner was inserted with the buildup centered at 12:00. The femur was brought into the wound with a femoral neck retractor and initial work used a box osteotome. A canal finder and sequential reaming up to size 15 was performed. Broaches were then broached to a size 15 with good fit and fill. Trial reduction showed excellent stability and range of motion with a high offset neck and +4 mm 36 mm diameter head. Trial components were removed. A Synergy #15 high offset ingrowth stem was inserted to the appropriate depth. A +4 mm neck length 36 mm diameter Oxinium was applied. The hip was reduced and again noted to have good stability throughout the range of motion. Wounds were irrigated. Periarticular cocktail was injected around the capsule and hip joint. The T capsulotomy was repaired with interrupted #1 Vicryl suture. The abductor muscles were repaired back to the greater trochanter with interrupted #5 Ethibond suture using bone tunnels. Iliotibial band was repaired with interrupted #1 Vicryl suture. Subcutaneous tissue was closed with interrupted 2-0 Vicryl suture. Running Monocryl was used for final skin closure. Sterile dressing was applied. Patient was accompanied the recovery in stable condition. Pain medications: Toradol Tylenol and oxycodone Prophylactic antibiotics: Ancef for 2 doses Venous thromboembolism prophylaxis. Aspirin 325 mg enteric-coated x90 days Restrictions: Patient is weightbearing as tolerated on his left lower extremity with anterolateral hip dislocation precautions.
--- NOTE | 2020-10-31 11:01 | PCM48HPAN ---
Post Anesthesia Note - EVALUATION WITHIN 48HRS OF ANESTHETIC Vital Signs in Normal Range: Yes Patient Participated in Evaluation: Yes Respiratory Function Stable: Yes Airway Patent: Yes Cardiovascular Function Stable: Yes Hydration Status Stable: Yes Pain Control Satisfactory: Yes Nausea and Vomiting Control Satisfactory: Yes Mental Status Recovered: Yes Vital Signs: Last Vital Signs Temp 36.9 C 10/31/20 10:43 Pulse 76 10/31/20 10:53 Resp 10 L 10/31/20 10:53 BP 103/61 10/31/20 10:53 Pulse Ox 94 L 10/31/20 10:53
--- NOTE | 2020-10-31 11:01 | PCM.POSTAN ---
POST ANESTHESIA ASSESSMENT - MENTAL STATUS Mental Status: Alert, Oriented - VITAL SIGNS Vital Signs: Last Vital Signs Temp 36.9 C 10/31/20 10:43 Pulse 76 10/31/20 10:53 Resp 10 L 10/31/20 10:53 BP 103/61 10/31/20 10:53 Pulse Ox 94 L 10/31/20 10:53 - RESPIRATORY Respiratory Status: Respiratory Rate WNL, Airway Patent, O2 Saturation Stable - CARDIOVASCULAR CV Status: Pulse Rate WNL, Blood Pressure Stable - GASTROINTESTINAL GI Status: No Symptoms - POST OP HYDRATION Hydration Status: Adequate & Stable
--- NOTE | 2020-10-31 12:01 | CR ---
INDICATION: Post left hip arthroplasty. TECHNIQUE: AP view of the pelvis and lateral projection of left hip. COMPARISON: : 06/07/2020. FINDINGS: Immediate postop change of left total hip arthroplasty. Prosthetic components well-seated and aligned. IMPRESSION: : Immediate postop change of left total hip arthroplasty without evidence of complication. Dictated by Kal Barnhart MD @ 10/31/2020 11:59:[address] Kal Barnhart @ Oct 31 2020 11:59AM
[2020-10-31 12:40] LABS: BLOOD UREA NITROGEN,BUN 17 mg/dL (7.0-18.0); CARBON DIOXIDE,CO2 26.3 mmol/L (21.0-32.0); CHLORIDE,CL 105 mmol/L (98-107); GLUCOSE RANDOM 124 mg/dL (74-106); POTASSIUM,K 4.1 mmol/L (3.5-5.1); SODIUM,NA 138 mmol/L (136-148)
--- NOTE | 2020-10-31 13:18 | PCM.CONS ---
H&P History of Present Illness - General Date of Service: 10/31/20 Admit Problem/Dx: Admission Diagnosis/Problem Admission Diagnosis/Problem Hip pain Source of Information: Patient, Old Records, Other ([employer] paperwork) - History of Present Illness Initial Comments - Free Text/Narative: This 64-year-old male with past medical history of anxiety/depression with psychotic features, hypertension, hyperlipidemia presented to the hospital today for left total hip replacement with Dr. Greco. Hospitalist service consulted for medical management for hypertension hyperlipidemia. 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 Cognitive level unclear patient does verbally respond and is interactive but is a poor historian. Patient returns from PACU alert and oriented denies any chest pain or shortness of breath. He denies any left hip pain. He is eating and drinking much appropriately. No concerns at this time. Chart review performed H&P from PCP reviewed. No history of diabetes or ischemic cardiac events. Patient has been stable on no medications currently and has failed outpatient management of chronic hip pain which has led him to his hip replacement. - Related Data Allergies/Adverse Reactions: Allergies Allergy/AdvReac Type Severity Reaction Status Date / Time No Known Allergies Allergy Verified 10/25/20 10:55 Home Medications: Home Meds Aspirin 81 mg PO DAILY 03/30/20 [History] FLUoxetine HCl [Fluoxetine HCl] 40 mg PO DAILY 03/30/20 [History] Fenofibrate Nanocrystallized [Tricor] 145 mg PO DAILY 03/30/20 [History] Losartan Potassium 50 mg PO QAM 03/30/20 [History] Omeprazole 20 mg PO DAILY 03/30/20 [History] Boric Acid 1 dose EARBOTH ASDIRECTED PRN 10/04/20 [History] traMADol HCl [Tramadol HCl] 50 mg PO ASDIRECTED PRN 10/04/20 [History] Meloxicam 15 mg PO DAILY 10/25/20 [History] atorvaSTATin [Lipitor] 10 mg PO DAILY 10/25/20 [History] Past Medical History HEENT History: Reports: Hard of Hearing, Other (See Below) Other HEENT History: chronic otitis media w/ effusion, conjunctivitis, chronic sinusitis Cardiovascular History: Reports: High Cholesterol, Hypertension, Other (See Below). Denies: CAD Other Cardiovascular History: varicose veins Respiratory History: Reports: None. Denies: Asthma, COPD Gastrointestinal History: Reports: Colon Polyp, GERD Genitourinary History: Reports: None Musculoskeletal History: Reports: Other (See Below) Other Musculoskeletal History: advanced left hip osteoarthritis Neurological History: Reports: Other (See Below) Other Neuro History: possible seizure disorder Psychiatric History: Reports: Anxiety, Depression, Learning Disability, Other (See Below) Other Psychiatric History: paraphilia NOS, major deprssive disorder w/psychotic features Endocrine/Metabolic History: Reports: Obesity/BMI 30+ Hematologic History: Reports: None Immunologic History: Reports: None Oncologic (Cancer) History: Reports: None Dermatologic History: Reports: None - Infectious Disease History Infectious Disease History: Reports: None - Past Surgical History Head Surgeries/Procedures: Reports: None HEENT Surgical History: Reports: Myringotomy w Tube(s), Oral Surgery, Other (See Below) Other HEENT Surgeries/Procedures: cleft palate repair, mastoidectomy & revision, septoplasty Cardiovascular Surgical History: Reports: None Respiratory Surgical History: Reports: None GI Surgical History: Reports: Other (See Below) Other GI Surgeries/Procedures: sigmoidoscopy Male Surgical History: Reports: None Endocrine Surgical History: Reports: None Neurological Surgical History: Reports: None Musculoskeletal Surgical History: Reports: None Oncologic Surgical History: Reports: None Dermatological Surgical History: Reports: None Social & Family History - Family History Family Medical History: No Pertinent Family History - Tobacco Use Tobacco Use Status *Q: Never Tobacco User - Caffeine Use Caffeine Use: Reports: None - Recreational Drug Use Recreational Drug Use: No Drug Use in Last 12 Months: No H&P Review of Systems - Review of Systems: Review Of Systems: See Below General: Reports: No Symptoms. Denies: Fever, Chills, Malaise Pulmonary: Reports: No Symptoms. Denies: Shortness of Breath Cardiovascular: Reports: No Symptoms. Denies: Chest Pain Gastrointestinal: Reports: No Symptoms. Denies: Abdominal Pain, Nausea, Vomiting Genitourinary: Reports: No Symptoms. Denies: Dysuria, Frequency Skin: Reports: No Symptoms Psychiatric: Reports: No Symptoms Neurological: Reports: No Symptoms Hematologic/Lymphatic: Reports: No Symptoms Immunologic: Reports: No Symptoms Exam - Exam Exam: See Below - Vital Signs Vital Signs: Last Vital Signs Temp 97.5 F 10/31/20 11:55 Pulse 80 10/31/20 11:55 Resp 16 10/31/20 11:55 BP 94/59 L 10/31/20 11:55 Pulse Ox 94 L 10/31/20 11:55 Weight: 106.594 kg - Exam Quality Assessment: Supplemental Oxygen, DVT Prophylaxis General: Alert, Oriented, Cooperative HEENT: Conjunctiva Clear, Mucosa Moist & [place], Posterior Pharynx Clear Lungs: Clear to Auscultation, Normal Respiratory Effort Cardiovascular: Regular Rate, Regular Rhythm GI/Abdominal Exam: Normal Bowel Sounds, Soft, Non-Tender Skin: Warm, Dry, Intact, Incision (Left hip dressing is clean dry and intact polar ice intact) Neuro Extensive - Mental Status: Alert, Oriented x3 Psychiatric: Alert, Normal Affect, Normal Mood - Patient Data Lab Results Last 24 hrs: Laboratory Results - last 24 hr 10/31/20 10/31/20 10/31/20 Range/Units 07:19 12:06 12:06 WBC 11.15 H (4.0-11.0) K/uL RBC 4.63 (4.50-5.90) M/uL Hgb 13.6 (13.0-17.0) g/dL Hct 39.9 (38.0-50.0) % MCV 86.2 (80.0-98.0) fL MCH 29.4 (27.0-32.0) pg MCHC 34.1 (31.0-37.0) g/dL RDW Std Deviation 44.3 (28.0-62.0) fl RDW Coeff of Gracie 14 (11.0-15.0) % Plt Count 219 (150-400) K/uL MPV 10.20 (7.40-12.00) fL Neut % (Auto) 89.3 H (48.0-80.0) % Lymph % (Auto) 8.6 L (16.0-40.0) % [place] % (Auto) 1.7 (0.0-15.0) % Eos % (Auto) 0.2 (0.0-7.0) % Baso % (Auto) 0.2 (0.0-1.5) % Neut # (Auto) 10.0 H (1.4-5.7) K/uL Lymph # (Auto) 1.0 (0.6-2.4) K/uL [place] # (Auto) 0.2 (0.0-0.8) K/uL Eos # (Auto) 0.0 (0.0-0.7) K/uL Baso # (Auto) 0.0 (0.0-0.1) K/uL Nucleated RBC % 0.0 /100WBC Nucleated RBCs # 0 K/uL Sodium 138 (136-148) mmol/L Potassium 4.1 (3.5-5.1) mmol/L Chloride 105 (98-107) mmol/L Carbon Dioxide 26.3 (21.0-32.0) mmol/L BUN 17 (7.0-18.0) mg/dL Creatinine 1.2 (0.8-1.3) mg/dL Est Cr Clr Drug Dosing 63.83 mL/min Estimated GFR (MDRD) > 60.0 ml/min Glucose 124 H (74-106) mg/dL Calcium 8.1 L (8.5-10.1) mg/dL Magnesium 2.3 (1.8-2.4) mg/dL Blood Type O NEGATIVE Antibody Screen NEGATIVE Result Diagrams: 10/31/20 12:06 10/31/20 12:06 Sepsis Event Note - Focused Exam Vital Signs: Vital Signs Temp Pulse Resp BP Pulse Ox 10/31/20 11:55 97.5 F 80 16 94/59 L 94 L 10/31/20 11:38 69 13 100/64 94 L 10/31/20 11:33 70 10 L 95/64 94 L 10/31/20 11:28 75 10 L 102/65 94 L 10/31/20 11:23 74 11 L 99/58 L 94 L 10/31/20 11:18 74 10 L 89/57 L 94 L 10/31/20 11:13 75 10 L 98/60 94 L 10/31/20 11:08 73 13 101/56 L 94 L 10/31/20 11:03 75 10 L 105/60 94 L 10/31/20 10:58 74 10 L 91/58 L 93 L 10/31/20 10:53 76 10 L 103/61 94 L 10/31/20 10:48 77 11 L 96/63 94 L 10/31/20 10:43 98.4 F 79 18 106/62 93 L 10/31/20 06:57 97.9 F 60 15 139/97 H 92 L Consult PN Assessment/Plan POD#: 0 Procedures: Procedures CARDIOVASCULAR STRESS TEST (05/10/19) DRAIN/INJ JOINT/BURSA W/O US (12/02/16) EMERGENCY DEPT VISIT (04/18/20) FLUOROSCOPY <1 HR PHYS/QHP (12/28/13) HT MUSCLE IMAGE SPECT MULT (05/10/19) NEEDLE LOCALIZATION BY XRAY (12/02/16) X-RAY EXAM HIP UNI 2-3 VIEWS (06/07/20) X-RAY EXAM OF PELVIS (09/25/20) (1) Status post total hip replacement, left SNOMED Code(s): 361381039597, 477103640344 Code(s): Z96.642 - PRESENCE OF LEFT ARTIFICIAL HIP JOINT Current Visit: Yes (2) HTN (hypertension) SNOMED Code(s): 45626249 Code(s): I10 - ESSENTIAL (PRIMARY) HYPERTENSION Current Visit: Yes (3) HLD (hyperlipidemia) SNOMED Code(s): 21740754 Code(s): E78.5 - HYPERLIPIDEMIA, UNSPECIFIED Current Visit: Yes (4) GERD (gastroesophageal reflux disease) SNOMED Code(s): 246084094 Code(s): K21.9 - GASTRO-ESOPHAGEAL REFLUX DISEASE WITHOUT ESOPHAGITIS Current Visit: Yes (5) Major depression with psychotic features SNOMED Code(s): 102985057 Code(s): F32.3 - MAJOR DEPRESSV DISORD, SINGLE EPSD, SEVERE W PSYCH FEATURES Current Visit: Yes (6) Anxiety SNOMED Code(s): 97615804 Code(s): F41.9 - ANXIETY DISORDER, UNSPECIFIED Current Visit: Yes (7) Learning disability SNOMED Code(s): 5970402 Code(s): F81.9 - DEVELOPMENTAL DISORDER OF SCHOLASTIC SKILLS, UNSPECIFIED Current Visit: Yes (8) Self-care deficit SNOMED Code(s): 624484753 Code(s): Z78.9 - OTHER SPECIFIED HEALTH STATUS Current Visit: Yes Problem List Initiated/Reviewed/Updated: Yes My Orders Last 24 Hours: My Active Orders 11/01/20 05:11 BASIC METABOLIC PANEL,BMP [CHEM] AM MAGNESIUM [CHEM] AM 11/01/20 09:00 FLUoxetine HCl [Fluoxetine HCl] 40 mg PO DAILY Fenofibrate Nanocrystallized 145 mg PO DAILY Losartan [Cozaar] 50 mg PO QAM atorvaSTATin [Lipitor] 10 mg PO DAILY Plan: This 64-year-old male admitted for left total hip replacement with Dr. Greco. Hospitalist consult for medical management due to hypertension and depression/anxiety 1. Left total hip replacement -Orders per Dr. Greco, orthopedics 2. Hypertension/HLD -Continue home losartan and statin. -We will hold daily 81 mg aspirin for now as patient is started on aspirin 325 mg daily per orthopedics. 3. Anxiety/depression with psychotic features -Will remove scopolamine patch -Continue antidepressants per home dosing VTE prophylaxis: Would recommend when and appropriate by orthopedics CODE STATUS: Full code
[2020-10-31] MEDS: Ketorolac 30 MG/ML SDV IVPUSH SCH ×2 (15:41→22:29)
[2020-10-31] MEDS: ceFAZolin 2 GM in Premix Bag 1 BAG IV SCH (15:49)
[2020-10-31] MEDS: Aspirin 325 MG Tab PO SCH (18:32)
[2020-10-31] MEDS ORDERED: atorvaSTATin 10 MG Tab PO SCH (21:00)
[2020-11-01] MEDS: ceFAZolin 2 GM in Premix Bag 1 BAG IV SCH (00:18)
[2020-11-01] MEDS: Ketorolac 30 MG/ML SDV IVPUSH SCH (04:48)
[2020-11-01 07:38] LABS: BLOOD UREA NITROGEN,BUN 26 mg/dL (7.0-18.0); CARBON DIOXIDE,CO2 23.8 mmol/L (21.0-32.0); CHLORIDE,CL 101 mmol/L (98-107); GLUCOSE RANDOM 123 mg/dL (74-106); POTASSIUM,K 4.1 mmol/L (3.5-5.1); SODIUM,NA 134 mmol/L (136-148)
[2020-11-01] MEDS ORDERED: Acetaminophen 325 MG Tab PO PRN (08:04)
[2020-11-01] MEDS ORDERED: Ibuprofen 600 MG Tab PO SCH (09:00)
[2020-11-01] MEDS ORDERED: Losartan 50 MG Tab PO SCH (09:00)
[2020-11-01] MEDS ORDERED: Polyethylene Glycol 3350 Powder 17 GM Packet PO SCH (09:00)
[2020-11-01] MEDS ORDERED: FLUoxetine 20 MG Cap PO SCH (09:00)
[2020-11-01] MEDS ORDERED: Famotidine 20 MG Tab PO SCH (09:00)
[2020-11-01] MEDS: Aspirin 325 MG Tab PO SCH (09:59)
[2020-11-01 12:05] VITALS: BP 134/71; PULSE 69
--- NOTE | 2020-11-01 12:37 | PCM.DCSUM1 ---
Discharge Summary - Hospital Course Free Text/Narrative:: Janes underwent LEFT TOTAL HIP ARTHROPLASTY 10/31/[address] Pepito Greco. Admitted to med/surg for post-op care and PT. Post-operatively, he did well. Afebrile. No N/V. Voiding. Pain controlled with IV Toradol overnight. POD#1, he offers that his pain is minimal, and did not necessitate any narcotic medication. Diligent use of ice to hip. Surgical dressing had small amount of blood shadowing. Dressing removed POD#1. Incision clean, dry and approximated. Large AquaCell bandage applied. Prophylactic antibiotic : 2 additional doses of Ancef 2gm IV. DVT prophylaxis : ASA 325mg daily, SCDs when in bed, and early ambulation. Hg stable @ 13.6 POD#1. Ambulated well with staff surgical day, with use of FWW. Hospitalist services consulted for medical management. Ready to be discharged back to [facility] POD#1. - Discharge Data Discharge Date: 11/01/20 Discharge Disposition: Home, Self-Care 01 Condition: Good - Referral to Home Health Primary Care Physician: Aaron Bernal MD - Patient Summary/Data Operative Procedure(s) Performed: Left total hip replacement using [employer] hip system Consults: Consultations 10/31/20 10:45 Consult to Physician [CONS] Routine PT Evaluation and Treatment [CONS] Routine - Patient Instructions Diet: Heart Healthy Diet Activity: Apply Ice (Use PolarCare ice pad often. This minimizes swelling which decreases pain) Activity, Other: weight bearing as tolerates left leg. Use walker when ambulating Showering/Bathing: May Shower, No Tub Bathing/Swimming Showering/Bathing, Other: you do not need to cover bandage when showering Notify Provider of: Fever, Increased Pain, Swelling and Redness, Drainage Other/Special Instructions: PAIN MANAGEMENT. 1) Ibuprofen three times daily. 2) In between Ibuprofen, if needed, take 2 Tylenol for mild to moderate pain. If pain is moderate to severe, take the narcotic medication. CONSTIPATION. This can occur after surgery, caused from decreased activity and the pain medications. Drink plenty of liquids every day. If feeling constipated, take MIRALAX daily until feeling better. BLOOD CLOT PREVENTION. Take ASPIRIN 325mg daily for 3 months. HIP PRECAUTIONS. *Do not cross your surgical leg. *Do not turn surgical leg outward - Discharge Plan Prescriptions/Med Rec: Aspirin 325 mg PO DAILY #90 tablet Ibuprofen [Motrin] 600 mg PO Q8H #45 tablet Home Medications: Home Meds FLUoxetine HCl [Fluoxetine HCl] 40 mg PO DAILY 03/30/20 [History] Fenofibrate Nanocrystallized [Tricor] 145 mg PO DAILY 03/30/20 [History] Losartan Potassium 50 mg PO QAM 03/30/20 [History] Omeprazole 20 mg PO DAILY 03/30/20 [History] Boric Acid 1 dose EARBOTH ASDIRECTED PRN 10/04/20 [History] atorvaSTATin [Lipitor] 10 mg PO DAILY 10/25/20 [History] Aspirin 325 mg PO DAILY #90 tablet 10/31/20 [Rx] Docusate Sodium [Colace] 100 mg PO Q12HR PRN cap 10/31/20 [Rx] polyethylene glycoL 3350 [MiraLAX] 17 gm PO DAILY packet 10/31/20 [Rx] Acetaminophen [Tylenol] 650 mg PO Q6H PRN tablet 11/01/20 [Rx] Ibuprofen [Motrin] 600 mg PO Q8H #45 tablet 11/01/20 [Rx] Patient Handouts: Total Hip Replacement, [id number], Hip Arthroscopy, Care After Referrals: Eugenie Santos WHAT JOB TITLES MEAN [Nurse Practitioner] - 11/15/20 1:00 pm - Discharge Summary/Plan Comment DC Time >30 min.: No - General Info Date of Service: 11/01/20 (814) Admission Dx/Problem (Free Text: Admission Diagnosis/Problem Admission Diagnosis/Problem Hip pain Functional Status: Reports: Pain Controlled, Tolerating Diet, Ambulating (with staff and walker), Urinating - Review of Systems General: Denies: Fever Gastrointestinal: Denies: Nausea, Vomiting Musculoskeletal: Denies: Joint Pain - Patient Data Vitals - Most Recent: Last Vital Signs Temp 36.3 C 11/01/20 12:00 Pulse 69 11/01/20 12:00 Resp 20 11/01/20 12:00 BP 134/71 11/01/20 12:00 Pulse Ox 93 L 11/01/20 12:00 Weight - Most Recent: 106.594 kg I&O - Last 24 hours: Intake & Output 10/31/20 11/01/20 11/01/20 22:59 06:59 14:59 Intake Total 200 600 Output Total 0 475 Balance 200 125 Lab Results - Last 24 hrs: Laboratory Results - last 24 hr 10/31/20 11/01/20 11/01/20 Range/Units 12:06 06:19 06:19 Hgb 11.9 L (13.0-17.0) g/dL Hct 34.5 L (38.0-50.0) % Sodium 138 134 L (136-148) mmol/L Potassium 4.1 4.1 (3.5-5.1) mmol/L Chloride 105 101 (98-107) mmol/L Carbon Dioxide 26.3 23.8 (21.0-32.0) mmol/L BUN 17 26 H (7.0-18.0) mg/dL Creatinine 1.2 1.2 (0.8-1.3) mg/dL Est Cr Clr Drug Dosing 63.83 63.83 mL/min Estimated GFR (MDRD) > 60.0 > 60.0 ml/min Glucose 124 H 123 H (74-106) mg/dL Calcium 8.1 L 8.3 L (8.5-10.1) mg/dL Magnesium 2.3 2.1 (1.8-2.4) mg/dL Med Orders - Current: Current Medications Acetaminophen (Acetaminophen 325 Mg Tab) 650 mg PO Q6H PRN PRN Reason: Pain Al Hydroxide/Mg Hydroxide (Aluminum Hydroxide/Magnesium Hydroxide/Simethicone Susp 30 Ml Cup) 30 ml PO Q4H PRN PRN Reason: Indigestion Aspirin (Aspirin 325 Mg Tab) 325 mg PO DAILY [facility] Last Admin: 11/01/20 09:59 Dose: 325 mg Documented by: Atorvastatin Calcium (Atorvastatin 10 Mg Tab) 10 mg PO BEDTIME [facility] Last Admin: 10/31/20 22:28 Dose: 10 mg Documented by: Bisacodyl (Bisacodyl 10 Mg Supp) 10 mg RECTAL DAILY PRN PRN Reason: Constipation Diphenhydramine HCl (Diphenhydramine 25 Mg Cap) 25 - 50 mg PO Q6H PRN PRN Reason: Itching Docusate Sodium (Docusate Sodium 100 Mg Cap) 100 mg PO Q12HR PRN PRN Reason: Constipation Famotidine (Famotidine 20 Mg/2 Ml Sdv) 40 mg IVPUSH ONARRIVE [facility] Last Admin: 10/31/20 07:23 Dose: 40 mg Documented by: Famotidine (Famotidine 20 Mg Tab) 40 mg PO DAILY [facility] Last Admin: 11/01/20 09:59 Dose: 40 mg Documented by: Fluoxetine HCl (Fluoxetine 20 Mg Cap) 40 mg PO DAILY [facility] Last Admin: 11/01/20 10:00 Dose: 40 mg Documented by: Cefazolin Sodium/Dextrose 2 gm (/ Premix) 50 mls @ 100 mls/hr IV ONCALL [facility] Last Admin: 10/31/20 15:40 Dose: 100 mls/hr Documented by: Lactated Ringer's (Ringers, Lactated) 1,000 mls @ 100 mls/hr IV ASDIRECTED [facility] Last Admin: 10/31/20 07:24 Dose: 100 mls/hr Documented by: Ropivacaine 49.25 ml/Ketorolac Tromethamine 30 mg/Epinephrine HCl 0.5 mg/Clonidine HCl 80 mcg/ Sodium Chloride 75 mls @ 50 mls/sec INJECT ASDIRECTED [facility] Ibuprofen (Ibuprofen 600 Mg Tab) 600 mg PO Q8H [facility] Last Admin: 11/01/20 09:59 Dose: 600 mg Documented by: Losartan Potassium (Losartan 50 Mg Tab) 50 mg PO QAM [facility] Last Admin: 11/01/20 09:59 Dose: 50 mg Documented by: Morphine Sulfate (Morphine 2 Mg/Ml Syringe) 1 - 2 mg IVPUSH Q3H PRN PRN Reason: Pain Ondansetron HCl (Ondansetron 4 Mg/2 Ml Sdv) 4 mg IVPUSH Q6H PRN PRN Reason: Nausea/Vomiting Oxycodone HCl (Oxycodone 5 Mg Tab) 5 - 10 mg PO Q4H PRN PRN Reason: Pain Last Admin: 11/01/20 10:23 Dose: 5 mg Documented by: Fenofibrate Nanocrystallized 145 Mg Tablet 1 each PO DAILY [facility] Last Admin: 11/01/20 10:09 Dose: Not Given Documented by: Polyethylene Glycol (Polyethylene Glycol 3350 Powder 17 Gm Packet) 17 gm PO DAILY [facility] Last Admin: 11/01/20 09:59 Dose: 17 gm Documented by: Sodium Chloride (Sodium Chloride 0.9% 10 Ml Syringe) 10 ml FLUSH ASDIRECTED PRN PRN Reason: Keep Vein Open Sodium Chloride (Sodium Chloride 0.9% 2.5 Ml Syringe) 2.5 ml FLUSH ASDIRECTED PRN PRN Reason: Keep Vein Open Tramadol HCl (Tramadol 50 Mg Tab) 50 - 100 mg PO Q6H PRN PRN Reason: Pain Discontinued Medications Albuterol (Albuterol 0.083% 2.5 Mg/3 Ml Neb Soln) 2.5 mg NEB ONETIME PRN PRN Reason: Wheezing Dexamethasone (Dexamethasone 4 Mg/Ml 5 Ml Mdv) Confirm Administered Dose 20 mg .ROUTE .STK-MED ONE Stop: 10/31/20 07:05 Droperidol (Droperidol 5 Mg/2 Ml Sdv) 0.625 mg IVPUSH ONETIME PRN PRN Reason: Nausea/Vomiting Epinephrine HCl (Epinephrine 1 Mg/Ml Sdv) Confirm Administered Dose 1 mg .ROUTE .STK-MED ONE Stop: 10/31/20 07:04 Famotidine (Famotidine 20 Mg/2 Ml Sdv) Confirm Administered Dose 40 mg .ROUTE .STK-MED ONE Stop: 10/31/20 07:23 Fentanyl (Fentanyl 100 Mcg/2 Ml Sdv) Confirm Administered Dose 100 mcg .ROUTE .STK-MED ONE Stop: 10/31/20 07:05 Last Admin: 10/31/20 15:10 Dose: Not Given Documented by: Fentanyl (Fentanyl 100 Mcg/2 Ml Sdv) 50 mcg IVPUSH Q5M PRN PRN Reason: Pain (mild 1-3) Glycopyrrolate (Glycopyrrolate 0.2 Mg/Ml Sdv) Confirm Administered Dose 0.2 mg .ROUTE .STK-MED ONE Stop: 10/31/20 08:54 Hydromorphone HCl (Hydromorphone 1 Mg/Ml Syringe) 1 mg IVPUSH Q10M PRN PRN Reason: Pain (moderate 4-6) Tranexamic Acid 1,000 mg/ (Sodium Chloride) 110 mls @ 600 mls/hr IV ASDIRECTED ONE Stop: 10/31/20 08:10 Last Admin: 10/31/20 12:33 Dose: Not Given Documented by: Ropivacaine 49.25 ml/Ketorolac Tromethamine 30 mg/Epinephrine HCl 0.5 mg/Clonidine HCl 80 mcg/ Sodium Chloride 75 mls @ 50 mls/sec INJECT ASDIRECTED VU Propofol (Diprivan 50 Ml) Confirm Administered Dose 50 mls @ as directed .ROUTE .STK-MED ONE Stop: 10/31/20 06:59 Bupivacaine HCl/Epinephrine Bitart (Sensorc Mpf 0.25%-Epi 1:[id number]) Confirm Administered Dose 30 mls @ as directed .ROUTE .STK-MED ONE Stop: 10/31/20 07:00 Acetaminophen (Ofirmev 1000 Mg/100 Ml) Confirm Administered Dose 100 mls @ as directed .ROUTE .STK-MED ONE Stop: 10/31/20 07:00 Cefazolin Sodium/Dextrose 2 gm (/ Premix) 50 mls @ 100 mls/hr IV Q8H [facility] Stop: 11/01/20 00:29 Last Admin: 11/01/20 00:18 Dose: 100 mls/hr Documented by: Ketorolac Tromethamine (Ketorolac 30 Mg/Ml Sdv) Confirm Administered Dose 30 mg .ROUTE .STK-MED ONE Stop: 10/31/20 10:07 Ketorolac Tromethamine (Ketorolac 30 Mg/Ml Sdv) 30 mg IVPUSH Q6H [facility] Stop: 11/01/20 05:00 Last Admin: 11/01/20 04:48 Dose: 30 mg Documented by: Lidocaine HCl (Lidocaine 1% 20 Ml Mdv) Confirm Administered Dose 20 ml .ROUTE .STK-MED ONE Stop: 10/31/20 07:00 Lidocaine HCl (Lidocaine 1% 5 Ml Sdv) Confirm Administered Dose 5 ml .ROUTE .STK-MED ONE Stop: 10/31/20 07:04 Metoclopramide HCl (Metoclopramide 10 Mg/2 Ml Sdv) Confirm Administered Dose 10 mg .ROUTE .STK-MED ONE Stop: 10/31/20 07:19 Metoclopramide HCl (Metoclopramide 10 Mg/2 Ml Sdv) 10 mg IVPUSH ONETIME PRN PRN Reason: Nausea/Vomiting Midazolam HCl (Midazolam 1 Mg/Ml 2 Ml Sdv) Confirm Administered Dose 2 mg .ROUTE .STK-MED ONE Stop: 10/31/20 07:05 Last Admin: 10/31/20 15:10 Dose: Not Given Documented by: Miscellaneous Medication (Phenylephrine Hcl In 0.9% Nacl 1 Mg/10 Ml Syringe) Confirm Administered Dose 1 mg .ROUTE .STK-MED ONE Stop: 10/31/20 08:19 Morphine Sulfate (Morphine Pf 10 Mg/10 Ml Sdv) Confirm Administered Dose 10 mg .ROUTE .STK-MED ONE Stop: 10/31/20 06:59 Morphine Sulfate (Morphine 2 Mg/Ml Syringe) 2 mg IVPUSH Q10M PRN PRN Reason: Pain (severe 7-10) Naloxone HCl (Naloxone 0.4 Mg/Ml Syringe) 0.1 mg IVPUSH ASDIRECTED PRN PRN Reason: Respiratory Depression Ondansetron HCl (Ondansetron 4 Mg/2 Ml Sdv) 4 mg IVPUSH ONETIME PRN PRN Reason: Nausea/Vomiting Phenylephrine HCl (Phenylephrine 1% 10 Mg/Ml Sdv) Confirm Administered Dose 10 mg .ROUTE .STK-MED ONE Stop: 10/31/20 08:47 Scopolamine (Scopolamine 1.5 Mg Transdermal Patch) 1.5 mg TRDERM ONARRIVE [facility] Last Admin: 10/31/20 07:20 Dose: 1.5 mg Documented by: Tranexamic Acid (Tranexamic Acid 1,000 Mg/10 Ml Amp) Confirm Administered Dose 1,000 mg .ROUTE .STK-MED ONE Stop: 10/31/20 07:49 - Exam Quality Assessment: Reports: DVT Prophylaxis (ASA 325mg daily, bilateral SCDs, and early ambulation) General: Reports: Alert, Oriented, Cooperative, No Acute Distress Lungs: Reports: Normal Respiratory Effort Cardiovascular: Reports: Other (Left pedal pulse 2+) Extremities: No Pedal Edema, Normal Capillary Refill Skin: Reports: Warm, Dry Wound/Incisions: Reports: Dressing Dry and Intact, No Drainage. Denies: Erythema Psy/Mental Status: Reports: Alert, Normal Affect (mild disability), Normal Mood
== END 2020-11-01 14:35 | disposition home or self-care (01) ==
LOC: MW.SDS 06:46 → INTOOBSV 06:46 → UNDOADMOB 06:46 → MW.MS 06:46 → EDSTATUS 08:00 → MW.MS 09:28 → MW.SDS 11-01 14:35 → UNDODISOB 11-01 14:35
PROVIDERS: ATTEND Orthopaedic Surgery
DX: M16.12 Unilateral primary osteoarthritis, left hip (principal); M25.752 Osteophyte, left hip; M89.8X5 Other specified disorders of bone, thigh; G89.29 Other chronic pain; E78.5 Hyperlipidemia, unspecified; I10 Essential (primary) hypertension; E78.00 Pure hypercholesterolemia, unspecified; E66.9 Obesity, unspecified; Z68.34 Body mass index [BMI] 34.0-34.9, adult; K21.9 Gastro-esophageal reflux disease without esophagitis; F32.3 Major depressive disorder, single episode, severe with psychotic features; F41.9 Anxiety disorder, unspecified; F81.9 Developmental disorder of scholastic skills, unspecified; Z79.899 Other long term (current) drug therapy; Z78.9 Other specified health status
CPT/HCPCS: 27130; 36415; 73501; 80048; 83735; 85014; 85018; 85025; 86850; 86900; 86901; 88305; 88311; 97110; 97162; A9270; C1713; C1776; J0131; J0171; J0690; J0735; J1100; J1885; J2270; J2370; J2704; J2795; J3490; J7120; 01214; 64447; J2765

== ENCOUNTER 2022-01-07 06:00 | Day surgery (SDC) | payer MEDICARE, MEDICAID ==
[2022-01-07] MEDS ORDERED: Lidocaine 2% 5 ML SDV ONE (07:29)
[2022-01-07] MEDS ORDERED: fentaNYL 100 MCG/2 ML SDV ONE (07:29)
[2022-01-07] MEDS ORDERED: Propofol 200 MG/20 ML SDV ONE (07:29)
[2022-01-07] MEDS ORDERED: Lactated Ringers 1,000 ML IV ONE (09:30)
== END 2022-01-07 11:17 ==
LOC: MW.SDS 06:00
PROVIDERS: ATTEND Surgery
DX: Z12.11 Encounter for screening for malignant neoplasm of colon (principal); D12.3 Benign neoplasm of transverse colon; K62.1 Rectal polyp; K57.30 Diverticulosis of large intestine without perforation or abscess without bleeding; M19.90 Unspecified osteoarthritis, unspecified site; Z86.010 Personal history of colon polyps; Z79.82 Long term (current) use of aspirin; Z79.899 Other long term (current) drug therapy; Z98.890 Other specified postprocedural states
CPT/HCPCS: 45380; J2704; J3010; J7120; 00812

== ENCOUNTER 2022-07-26 09:15 | Emergency (ER) | payer MEDICARE, MEDICAID ==
[2022-07-26] MEDS ORDERED: Sodium Chloride 0.9% 2.5 ML Syringe FLUSH PRN (09:27)
[2022-07-26] MEDS ORDERED: Sodium Chloride 0.9% 10 ML Syringe FLUSH PRN (09:27)
[2022-07-26 10:05] LABS: CARBON DIOXIDE,CO2 23.3 mmol/L (21.0-32.0)
[2022-07-26 10:40] VITALS: BP 121/69; PULSE 60
== END 2022-07-26 10:32 | disposition home or self-care (01) ==
LOC: MW.ED 09:15
DX: T17.818A Gastric contents in other parts of respiratory tract causing other injury, initial encounter (principal); R07.89 Other chest pain; I10 Essential (primary) hypertension; E78.00 Pure hypercholesterolemia, unspecified; K21.9 Gastro-esophageal reflux disease without esophagitis; E66.9 Obesity, unspecified; Z68.29 Body mass index [BMI] 29.0-29.9, adult; Z79.899 Other long term (current) drug therapy; Z79.82 Long term (current) use of aspirin
CPT/HCPCS: 36415; 71046; 80053; 84484; 85025; 93005; 99285; J3490; 93010; 99284